=== PATIENT | male | born 1940 | race Caucasian/White ===

== ENCOUNTER 2017-08-13 13:03 | Emergency (ER) | payer MEDICARE, OTHER ==
[~2017-08-13] VITALS: Ht 167.6 cm; Wt 84.0 kg
[2017-08-13 13:08] VITALS: Ht 167.6 cm; Wt 84.0 kg
[2017-08-13] MEDS ORDERED: CARB15DR50 LEFT EAR (15:15)
--- NOTE | 2017-08-13 15:20 | ERD ---
ER Documentation Chief Complaint Date/Time DATE: 08/13/17 TIME: 15:19 Chief Complaint left ear pain with drainage x 1 month HPI 77-year-old male patient with a history of diabetes, hypertension, CABG presents to the ED complaining of left ear pain and muffled hearing that started intermittently for 1 month. States that he has some muffled hearing. Reports that this also happened 8 years ago. Denies any tinnitus, purulent discharge, using Q-tips, most recent swimming. Denies any fever, chills, nausea , vomiting, headache, weakness, numbness or tingling, dizziness, chest pain, shortness of breath. ROS All systems reviewed and are negative except as per history of present illness. Medications Home Meds Active Scripts Carbamide Peroxide* (Debrox*) 6.5% - 15 Ml Drops, 10 DROP LEFT EAR BID, #1 BOTTLE Prov:LAMONT PUCKETT PA-C 08/13/17 PMhx/Soc History of Surgery: No Anesthesia Reaction: No Hx Neurological Disorder: No Hx Respiratory Disorders: No Hx Cardiac Disorders: Yes (CABG) Hx Psychiatric Problems: No Hx Miscellaneous Medical Probl: Yes (DM) Hx Alcohol Use: No Hx Substance Use: No Hx Tobacco Use: No Smoking Status: Never smoker Physical Exam Vitals Vital Signs Date Time Temp Pulse Resp B/P Pulse Ox O2 Delivery O2 Flow Rate FiO2 08/13/17 16:06 78 18 142/75 99 Room Air 08/13/17 13:08 97.0 81 20 148/70 97 Physical Exam Const: Qea-alp-hwhuvfphk, well-nourished. In no acute distress. Head: Atraumatic, normocephalic Eyes: Normal Conjunctiva without injection. No purulent discharge. PERRL. EOMI ENT: Normal external ear. Ear canal without erythema. Tympanic membrane pearly miller without effusion or bulging. Nasal canal clear with normal turbinates. Moist oropharynx without tonsillar exudates. Non-erythematous pharynx. Uvula midline. No drooling. No trismus. Neck: Full range of motion. No meningismus. No cervical lymphadenopathy. Resp: Clear to auscultation bilaterally. No wheezing, rhonchi, rales, or crackles. No accessory muscle use. No retractions. Cardio: Regular rate and rhythm. No murmurs, rubs or gallops. Abd: Soft, non tender, non distended. Normal bowel sounds. No palpable masses. No rebound tenderness. No guarding. Skin: No petechiae or rashes Back: No midline tenderness. No CVA tenderness. Ext: No cyanosis, or edema. Neur: Awake and alert. Psych: Normal Mood and Affect Procedures/MDM 37-year-old male patient with a past medical history of diabetes, hypertension presents the ED complaining of left ear pain that started intermittently for 1 month. Patient is afebrile and nontoxic-appearing. Patient has normal vital signs. Patient likely has a cerumen impaction. No visualization of the left tympanic membrane at this time. Non erythematous ear canal. Warm normal saline and hydrogen peroxide was used to flush patient's cerumen of the left ear with success. Patient tolerated the procedure. Patient reports that his symptoms feel better. Auditory acuity intact bilaterally. TMs intact. Low suspicion for otitis media, otitis externa or mastoiditis. Patient's physical exam include lungs which were clear to auscultation and a normal pulse oximetry. Patient is speaking in full sentences. There is a low suspicion for pneumonia, epiglottitis, croup, viral/strep pharyngitis, sinusitis, peritonsillar abscess, retropharyngeal abscess, meningitis, sepsis, acute abdomen or other emergent conditions. Discharge medications: Debrox Follow up with primary care physician in 1-2 days. Instructed patient to return to the ED sooner for any worsening symptoms. Patient's questions were answered. Patient understood and agreed with discharge plan. Patient discharged stable. Departure Diagnosis: Primary Impression: Cerumen impaction Laterality: left Qualified Code: H61.22 - Impacted cerumen of left ear Condition: Stable Patient Instructions: Cerumen Impaction, Home Care Referrals: [facility] Usted se hager hecho un examen mdico de control que le indica que no est en shameka condicin que requiera tratamiento urgente en el Departamento de Emergencia. Un estudio ms profundo y el tratamiento de duff condicin pueden esperar sin ningn riesgo hasta que usted sea atendida/o en el consultorio de duff mdico o shameka cl octaviano. Es responsabilidad suya arreglar shameka marilee para el seguimiento del ava. MANEJO DE CONDICIONES NO URGENTES EN EL FUTURO 1) Si usted tiene un mdico de atencin primaria: Patrick debera llamar a duff mdico de atencin primaria antes de venir al departamento de emergencia. Despus de las horas de consultorio, duff doctor o duff asociado/a est disponible por telfono. El mdico o enfermero de rosales en el servicio telefnico puede asesorarle por celeste medio para atender el problema, o ava contrario se puede programar shameka marilee. 2) Si usted no tiene un mdico de atencin primaria: Llame al mdico o clnica de referencia que aparece abajo orlando las horas de consultorio para hacer shameka marilee para que le vean. CLINICAS: [facility] [phone] [address] [facility] [phone] [address] [facility]. [facility] [phone] [facility] [facility] [phone] [address] [facility]. [facility] [phone] [address] [facility]. [phone] [facility] () Patrick se hager hecho un examen mdico de control que le indica que no est en shameka condicin que requiera tratamiento urgente en el Departamento de Emergencia. Un estudio ms profundo y el tratamiento de duff condicin pueden esperar sin ningn riesgo hasta que ted sea atendida/o en el consultorio de duff mdico o shameka cl octaviano. Es responsabilidad suya arreglar shameka marilee para el seguimiento del ava. MANEJO DE CONDICIONES NO URGENTES EN EL FUTURO 1) Si usted tiene un mdico de atencin primaria: Usted debera llamar a duff mdico de atencin primaria antes de venir al departamento de emergencia. Despus de las horas de consultorio, duff doctor o duff asociado/a est disponible por telfono. El mdico o enfermero de rosales en el servicio telefnico puede asesorarle por celeste medio para atender el problema, o ava contrario se puede programar shameka marilee. 2) Si usted no tiene un mdico de atencin primaria: Llame al mdico o condado institucions de referencia que aparece abajo orlando las horas de consultorio para hacer shameka marilee para que le vean. SI USTED NO PUEDE PAGAR PARA RIKA UN MEDICO puede ir a: [facility] [address] [place] [address] [facility] [address] [place] [address] [facility] [address] [place] [address] [address] [facility] [address] [place], [place] [id number] Additional Instructions: Llame al doctor MAANA y shen shameka MARILEE PARA DENTRO DE 2-3 LANTIGUA.Dgale a la secretaria que nosotros le instruimos hacer esta marilee.Avise o llame si duff condicin se empeora antes de la marilee. Regresa aqui si peor o no mejor. LAMONT PUCKETT PA-C Aug 13, 2017 15:20
[2017-08-13 16:06] VITALS: BP 142/75; PULSE 78; RESP 18
== END 2017-08-13 16:07 | disposition home or self-care (01) ==
LOC: FTE 13:03
DX: H61.22 Impacted cerumen, left ear (principal); E11.9 Type 2 diabetes mellitus without complications; I10 Essential (primary) hypertension; Z95.1 Presence of aortocoronary bypass graft

== ENCOUNTER 2017-08-27 12:12 | Emergency (ER) | payer MEDICARE, OTHER ==
[~2017-08-27] VITALS: Wt 84.0 kg
[~2017-08-27 12:12] MED LIST: CARB15DR50 LEFT EAR
[2017-08-27 14:30] VITALS: BP 145/72; PULSE 66; RESP 18; TEMP 97.6
--- NOTE | 2017-08-28 18:17 | ERD ---
ER Documentation Chief Complaint Date/Time DATE: 08/28/17 TIME: 18:16 Chief Complaint left ear pain HPI 77-year-old male presents with left ear congestion and mild pain. Denies fevers , congestion, bleeding or discharge. ROS All systems reviewed and are negative except as per history of present illness. Medications Home Meds Active Scripts Carbamide Peroxide* (Debrox*) 6.5% - 15 Ml Drops, 10 DROP LEFT EAR BID, #1 BOTTLE Prov:ITALOLAMONT Wanda MELENDEZ 08/13/17 PMhx/Soc History of Surgery: No Anesthesia Reaction: No Hx Neurological Disorder: No Hx Respiratory Disorders: No Hx Cardiac Disorders: Yes (CABG) Hx Psychiatric Problems: No Hx Miscellaneous Medical Probl: Yes (DM) Hx Alcohol Use: No Hx Substance Use: No Hx Tobacco Use: No Smoking Status: Never smoker Physical Exam Vitals Vital Signs Date Time Temp Pulse Resp B/P Pulse Ox O2 Delivery O2 Flow Rate FiO2 08/27/17 14:30 97.6 66 18 145/72 99 Room Air 08/27/17 12:13 97.6 72 18 158/74 99 Physical Exam Const: [], [id number]. Head: Atraumatic Eyes: Normal Conjunctiva ENT: Normal External Ears, Nose and Mouth. TMs occluded by some whitish substance. There is no pain with passive range of motion of the ear no mastoid tenderness. Neck: Full range of motion..~ No meningismus. Resp: Clear to auscultation bilaterally Cardio: Regular rate and rhythm, no murmurs Abd: Soft, non tender, non distended. Normal bowel sounds Skin: No petechiae or rashes Back: No midline or flank tenderness Ext: No cyanosis, or edema Neur: Awake and alert Psych: Normal Mood and Affect Procedures/MDM Patient presents with obstruction of the left external auditory canal. Ear irrigation was performed. A whitish paper type substance, possibly cotton was removed. TM was normal after procedure. Patient was discharged home with further observation. There is no evidence of TM rupture, mastoiditis, additional complications due to the patient's complaints. The patient was stable with no new complaints during the ER course. Clinically, there is no current evidence to suggest meningitis, sepsis, acute abdomen, pneumonia, acute coronary syndrome, pulmonary embolism, or any other emergent condition appearing to require further evaluation or hospitalization. The patient should certainly return for any new or worsening symptoms per the aftercare instructions. They should otherwise follow-up with her primary care doctor for reevaluation this week. Departure Diagnosis: Primary Impression: Acute foreign body of left ear canal Condition: Stable Patient Instructions: Foreign Body, Ear Canal (Removed) Additional Instructions: Cheque otro vez con duff doctor primario en el proximo joshi or regresa para mas o nueva simptomas. RHEA GARNETT MD Aug 28, 2017 18:17
== END 2017-08-27 14:40 | disposition home or self-care (01) ==
LOC: FTE 12:12
DX: T16.2XXA Foreign body in left ear, initial encounter (principal); E11.9 Type 2 diabetes mellitus without complications; X58.XXXA Exposure to other specified factors, initial encounter; Y92.9 Unspecified place or not applicable; Z98.61 Coronary angioplasty status

== ENCOUNTER 2017-09-02 13:12 | Emergency (ER) | payer MEDICARE, OTHER ==
[~2017-09-02] VITALS: Ht 165.1 cm; Wt 84.5 kg
[2017-09-02 13:57] VITALS: Ht 165.1 cm; Wt 84.5 kg
--- NOTE | 2017-09-02 14:53 | ERD ---
ER Documentation Chief Complaint Date/Time DATE: 09/02/17 TIME: 14:45 Chief Complaint LEFT EAR PAIN (PIERRE NAGY PA-C) HPI Patient is a 77-year-old male with a past medical history of hypertension, diabetes, hyperlipidemia, status post bypass surgery who presents to the emergency department for concerns of left ear pain x 2 weeks. Patient states he feels as if his ear is clogged. Patient reports decreased hearing. Patient states he saw his primary care physician he was given Debrox eardrops with no relief of symptoms. Patient states he occasionally has white liquid draining out of his ear. Patient denies any fevers or chills. Patient denies any nausea , vomiting, chest pain, shortness of breath, headache, dizziness or loss of consciousness. Patient admits to Q tip use. (PIERRE NAGY PA-C) ROS All systems reviewed and are negative except as per history of present illness. (PIERRE NAGY PA-C) Medications Home Meds Active Scripts Ciprofloxacin Hcl/Dexameth (Ciprodex Otic Suspension) 7.5 Ml Drops.susp, 4 DROP LEFT EAR BID for 7 Days, #1 BOTTLE Prov:PIERRE NAGY PA-C 09/02/17 Carbamide Peroxide* (Debrox*) 6.5% - 15 Ml Drops, 10 DROP LEFT EAR BID, #1 BOTTLE Prov:LAMONT PUCKETT PA-C 08/13/17 PMhx/Soc History of Surgery: No Anesthesia Reaction: No Hx Neurological Disorder: No Hx Respiratory Disorders: No Hx Cardiac Disorders: Yes (CABG) Hx Psychiatric Problems: No Hx Miscellaneous Medical Probl: Yes (DM) Hx Alcohol Use: No Hx Substance Use: No Hx Tobacco Use: No (PIERRE NAGY PA-C) Physical Exam Vitals Vital Signs Date Time Temp Pulse Resp B/P Pulse Ox O2 Delivery O2 Flow Rate FiO2 09/02/17 13:57 98.6 74 18 102/64 98 (RHEA GARNETT MD) Physical Exam GENERAL: Well-developed, well-nourished female. Appears in no acute distress. HEAD: Normocephalic, atraumatic. No deformities or ecchymosis. EYE: Pupils equal, round, and reactive to light. EOMs intact. No conjunctival erythema. No eye discharge. ENT: External ear without any masses or tenderness. L auditory canal with cerumen noted. R TM visualized, non-erythematous, non-bulging. Nasal mucosa pink with no discharge. Oropharynx is pink without any tonsillar erythema or exudates. No uvula deviation. No kissing tonsils. No mastoid tenderness bilaterally. NECK: Supple. No meningismus. Normal ROM of the neck. LUNG: Clear to auscultation bilaterally. No rhonchi, wheezing, rales or coarse breath sounds. HEART: Regular rate and rhythm. No murmurs, rubs or gallops. BACK: No midline tenderness. EXTREMITIES: Equal pulses bilaterally. No peripheral clubbing, cyanosis or edema. No unilateral leg swelling. NEUROLOGIC: Alert and oriented to person, place and time. Moving all four extremities. 5/5 strength in all extremities. Normal speech. Steady gait. SKIN: Normal color. Warm and dry. No rashes or lesions. (PIERRE NAGY PA-C) Procedures/MDM MEDICAL DECISION MAKING: Patient is a 77 year old male with L ear pain and fullness x2 weeks. Patient states that he has decrease hearing from L ear. Patient reports using Debrox. Vital signs were reviewed. Patient was afebrile. Patient was not hypoxic. L ear had cerumen in auditory canal. Ear lavage was performed using H20/ hydrogen peroxide mix. No trauma or complications were noted. TM was visualized post- irrigation without any erythema or perforation. Patient reported hearing restored. Patient will be empirically given ciprodex to cover for otitis externa. Given these findings, the patient's presentation is most consistent with cerumen impaction. I have a much lower clinical suspicion for tympanic membrane perforation, mastoiditis, otic barotrauma, TMJ dysfunction, mastoiditis, strep pharyngitis or meningitis. PRESCRIPTIONS: Ciprodex DISCHARGE: At this time, patient is stable for discharge and outpatient management. I have instructed the patient to follow-up with his/her primary care physician in 1-2 days. I have discussed with the patient the possibility of needing to see a specialist for further workup and diagnostic studies if the pain persists. I have instructed the patient to promptly return to the ER at any time for any new or worsening symptoms including increased pain, fever, swelling, discharge or hearing loss. The patient and/or family expressed understanding of and agreement with this plan. All questions were answered. Home care instructions were provided. Disclaimer: Inadvertent spelling and grammatical errors are likely due to EHR/ dictation software use and do not reflect on the overall quality of patient care. Also, please note that the electronic time recorded on this note does not necessarily reflect the actual time of the patient encounter. (PIERRE NAGY PA-C) Physician note-reviewed with detailed history and physical of mid-level provider Subjective patient complains of pain and congestion left ear. Objective-after with cerumen and exudate. No evidence of mastoiditis, perforation, additional complications related to complaints. Left ear lavage with improved symptoms and mild irritation in canal. Assessment-left ear cerumen and possible mild otitis externa. Plan-treat with Cortisporin, primary care follow-up and return precautions. (RHEA GARNETT MD) Departure Diagnosis: Primary Impression: Excessive cerumen in left ear canal Condition: Stable Additional Instructions: Call your primary care doctor TOMORROW for an appointment during the next 1-2 days.See the doctor sooner or return here if your condition worsens before your appointment time. PIERRE NAGY PA-C Sep 02, 2017 14:53 RHEA GARNETT MD Sep 02, 2017 15:35
[2017-09-02] MEDS ORDERED: CIPR7.5D4 LEFT EAR (15:35)
== END 2017-09-02 15:57 | disposition home or self-care (01) ==
LOC: FTE 13:12
DX: H61.22 Impacted cerumen, left ear (principal); E11.9 Type 2 diabetes mellitus without complications; I10 Essential (primary) hypertension; Z98.61 Coronary angioplasty status

== ENCOUNTER 2018-05-29 19:46 | Emergency (ER) | END 2018-05-30 02:39 | disposition home or self-care (01) ==

== ENCOUNTER 2019-05-04 15:20 | Emergency (ER) | payer MEDICARE, OTHER ==
[~2019-05-04] VITALS: Ht 167.6 cm; Wt 74.9 kg
[~2019-05-04 15:20] MED LIST changes: -CARB15DR50 LEFT EAR; +METF100010 PO
[2019-05-04 15:32] VITALS: BP 125/68; PULSE 74; RESP 18; Ht 167.6 cm; Wt 74.9 kg
== END 2019-05-04 16:08 | disposition left against medical advice (07) ==
LOC: E/R 15:20
DX: Z53.21 Procedure and treatment not carried out due to patient leaving prior to being seen by health care provider (principal)
CPT/HCPCS: 82962